=== PATIENT | female | born 1960 | race Caucasian/White ===

== ENCOUNTER 2018-01-08 05:05 | Inpatient (IN) ==
[2018-01-08] MEDS ORDERED: *HR* Dextrose 50 % in Water (Syg) 50 ML SYRINGE IVP PRN (18:05)
[2018-01-08] MEDS ORDERED: Dextrose Gel 15 GM/37.5 ML TUBE PO PRN ×2 (18:05)
[2018-01-08] MEDS ORDERED: D5% in Water 1,000 ML IVC PRN (18:05)
[2018-01-08] MEDS: Lactobacillus 1 EACH CAP.SPRINK PO SCH (20:08)
[2018-01-08] MEDS: Gabapentin 300 MG CAPSULE PO SCH (20:09)
[2018-01-08] MEDS: Furosemide 20 MG TABLET PO SCH (20:09)
[2018-01-08] MEDS: Insulin LISPRO 300 UNITS/3 ML VIAL SQ SCH (20:20)
[2018-01-09] MEDS: *HR* Enoxaparin 40 MG/0.4 ML SYRINGE SQ SCH (05:07)
[2018-01-09] MEDS: Gabapentin 300 MG CAPSULE PO SCH ×2 (07:45→20:07)
[2018-01-09] MEDS: FLUoxetine 20 MG CAPSULE PO SCH (07:45)
[2018-01-09] MEDS: Lisinopril 20 MG TABLET PO SCH (07:45)
[2018-01-09] MEDS: Multivit/Ca/Min/Fe/FA 1 TAB TABLET PO SCH (07:45)
[2018-01-09] MEDS: Aspirin 81 MG TAB.CHEW PO SCH (07:45)
[2018-01-09] MEDS: Lactobacillus 1 EACH CAP.SPRINK PO SCH ×2 (07:45→20:06)
[2018-01-09] MEDS: *HR* Metformin 500 MG TABLET PO SCH ×2 (07:45→16:23)
[2018-01-09] MEDS: Acetaminophen 325 MG TABLET PO PRN (07:48)
[2018-01-09] MEDS: Insulin LISPRO 300 UNITS/3 ML VIAL SQ SCH ×4 (07:48→20:21)
[2018-01-09] MEDS: Insulin DETEMIR 100 UNIT/ML X5UNITS SQ SCH (08:09)
[2018-01-09 10:05] LABS: Basophils # 0.1 K/mcL (0.0-0.2); Basophils % 0.7 %; Eosinophils # 0.2 K/mcL (0.0-0.6); Eosinophils % 2.8 %; Hematocrit 33.7 % (35.3-44.9); Hemoglobin 10.9 g/dL (11.5-15.4); Immature Granulocytes % 0.3 % (0-4); Lymphocytes # 1.3 K/mcL (0.6-4.6); Lymphocytes % 17.8 %; Mean Corpuscular HGB Conc 32.3 g/dL (31.6-35.5); Mean Corpuscular Volume 80.2 fL (83.0-100.0); Mean Platelet Volume 10.8 fL (9.4-12.4); Monocytes # 0.7 K/mcL (0.0-1.3); Monocytes % 9.2 %; Neutrophils # 4.9 K/mcL (1.6-8.9); Platelet Count 164 K/mcL (140-400); Red Cell Distribution Width 15.9 % (11.5-14.5); Segmented Neutrophils % 69.2 %
--- NOTE | 2018-01-09 10:37 | Internal Med History&Physical ---
Date of Encounter: 01/09/18 Time of Encounter: 10:33 Assessment and Plan (1) Generalized weakness Current visit: Yes Status: Chronic it seems that she is quite deconditioned and is unable to move around without any support . PT would help . continue supportive care . She is anemic however her anemia doesn't explain her generalized weakness. nshe has cellulite of the leg which could be the cause of her weakness as her infection improves sowillher weaness (2) Frequent falls Current visit: No Status: Acute same reason as above she also has neuropathy which could ne additional reasons. also se is on january bed which could cause this issue needs further adjustment (3) Cellulitis of left anterior lower leg Current visit: No Status: Acute on oral Clindamycin . continue her medications infection and warmth seems to have improved in her legs (4) Morbid obesity Current visit: No Status: Chronic (5) Diabetes 1.5, managed as type 2 Current visit: No Status: Chronic on multiple meds HBA1c is pending discussed about the need to watch her diet . she understands (6) Anemia Current visit: Yes Status: Chronic Low H/H is most likely chronic in nature workup has been ordered Add iron supplement for now Qualifiers: Anemia type: unspecified type Qualified Code(s): D64.9 - Anemia, unspecified Internal Medicine - H&P: HPI Chief complaint: fall and deconditioning Admitted From: Hospital to Hospital Transfer History of present illness: Ms. Camacho is a 57 year old female who fell down in her tuba nd then couldn't get up . her came back in around in the evening for after 12 hours to helper out. She was admitted at [facility] and later transfer to [place] for deconditioning. At the present time she denies any complains except for her inability ot getup from the bed without assistance. she denies any fever or chills . She complains of neuropathy pain in both her legs No fever or chills no chest pain no nausea vomiting or diarrhea no loss of weight o chest pain cough or symptoms suggesting or urinary tract infect Past Med Surg Social Fam HX - Past Medical History Medical history: COPD, diabetes, hyperlipidemia, hypertension Psychiatric history: no psych history - Past Surgical History Surgical History: cholecystectomy, orthopedic, other - Social History Smoking Status: Current every day smoker Packs per day: 1 Smokeless Tobacco Status: No Alcohol use: none Drug use: none - Family History Mother Age: 56 Family Member Ethnicity: Non- Living Status: Age at : 56 Cause of : diabetic complications Hx Family Cardiac Disorders: Yes (CHF) Hx Family Respiratory Disorders: No Hx Family Cancer: No Hx Family Endocrine Disorder: Yes (DM) Internal Medicine - H&P: Meds Aspirin [Adult Low Dose Aspirin EC] 81 mg PO DAILY 11/27/15 [History] Atorvastatin Calcium [Lipitor] 20 mg PO DAILY 11/27/15 [History] FLUoxetine HCl [Prozac] 20 mg PO DAILY 11/27/15 [History] Insulin ASPART [Novolog] 15 unit SQ TID 11/27/15 [History] Insulin Glargine,Hum.rec.anlog [Lantus Solostar] 36 unit SQ QAM 11/27/15 [ History] Lisinopril [Zestril] 20 mg PO DAILY 11/27/15 [History] Metformin HCl [Glucophage] 1,000 mg PO BID 11/27/15 [History] Oxybutynin Chloride [Ditropan Xl] 20 mg PO HS 11/27/15 [History] Meloxicam 7.5 mg PO DAILY #20 tablet 02/09/17 [Rx] Furosemide [Lasix] 20 mg PO DAILY 01/05/18 [History] Gabapentin [Neurontin] 600 mg PO HS 01/05/18 [History] Iron Ps Cmplx/Vit B12/FA [Poly-Iron 150 Forte Capsule] 1 cap PO DAILY 01/05/18 [ History] Vit/Iron Fumarate/FA [ Tablet] 1 tab PO DAILY 01/05/18 [History ] Acetaminophen [Tylenol] 650 mg PO Q6HR PRN tablet 01/08/18 [Rx] Clindamycin [Cleocin] 450 mg PO Q6HR 7 Days capsule 01/08/18 [Rx] Furosemide [Lasix] 20 mg PO HS #2 tablet 01/08/18 [Rx] Gabapentin [Neurontin] 300 mg PO BID #30 capsule 01/08/18 [Rx] Lactobacillus [Culturelle] 1 each PO BID cap.sprink 01/08/18 [Rx] 3 Allergy/AdvReac Type Severity Reaction Status Date / Time tetanus immune globulin Allergy Hives Verified 01/05/18 19:38 liraglutide [From Victoza] AdvReac Severe Nausea Verified 01/05/18 19:38 All Systems PM: A 10-system review of systems was performed and is negative for pertinent findings except as documented above in the HPI. - Constitutional Constitutional: falls, weakness, no anorexia, no chills, no excessive sweating, no fatigue, no night sweats, no weight gain, no weight loss - EENT Eyes: no blurry vision, no decreased night vision, no discharge, no loss of vision, no photophobia, no seeing flashes Ears: no decreased hearing Nose, mouth and throat: no dysphagia, no facial pain, no mouth pain, no odynophagia, no sinus pain, no sinus pressure, no sore throat - Respiratory Respiratory: no cough, no dyspnea, no hemoptysis, no dyspnea on exertion, no wheezing, no snoring, no pain on inspiration, no chest congestion, no excessive phlegm production, no change in phlegm color, no pain with cough - Gastrointestinal Gastrointestinal: no abdominal pain, no belching, no change in stool character, no constipation, no cramping, no diarrhea, no fecal incontinence, no heartburn, no hematemesis, no hematochezia, no melena, no nausea, no odynophagia - Genitourinary Genitourinary: no difficulty urinating, no hematuria, no pelvic pain, no urinary frequency, no urinary hesitancy, no urinary incontinence - Musculoskeletal Musculoskeletal ROS IM: arthralgias, limited range of motion, numbness, stiffness - Integumentary Integumentary IM: erythema, rash - Psychiatric Psychiatric: no hallucinations, no homicidal ideation, no suicidal ideation - Constitutional Vitals: Temp Pulse Resp BP Pulse Ox 98.1 F 87 17 165/83 99 01/09/18 04:00 01/09/18 04:00 01/09/18 04:00 01/09/18 04:00 01/09/18 04:00 General appearance: Present: A&O X 3, pleasant, no acute distress, obese, answers questions appropriately - Head Head exam: Present: atraumatic - Eye Eye exam: Present: EOMI, PERRL - Neck Neck exam general surgery: Present: full ROM, supple. Absent: tenderness, nuchal rigidity - Respiratory Respiratory exam: Present: CTAB. Absent: accessory muscle use, chest wall tenderness, decreased breath sounds, respiratory distress, rhonchi, stridor, wheezes, tachypnea - Cardiovascular Cardiovascular exam: Present: RRR, +S1, +S2. Absent: clicks, irregular rhythm, JVD - GI/Abdominal GI/Abdominal exam: Present: normal bowel sounds, soft. Absent: distended, guarding, rebound, rigid Additional comments: obese and soft - Extremities Exam Extremities exam: Present: pedal edema, tenderness Additional comments: redness and chronic skin changes noted both legs and shins more swelling on the left leg then right side no discharge tender to touch no local warmth noted - Neurological Exam Neurological exam: Present: alert, CN II-XII intact, oriented X3, reflexes normal, strengths equal and symetr throughout. Absent: facial droop, speech deficit Additional comments: no central weakness noted Internal Med - H&P Results - Labs CBC & Chem 7: 01/09/18 10:00 Labs: Short CBC 01/09/18 Range/Units 10:00 WBC 7.1 (4.3-11.1) K/mcL Hgb 10.9 L (11.5-15.4) g/dL Hct 33.7 L (35.3-44.9) % Plt Count 164 (140-400) K/mcL Neutrophils # 4.9 (1.6-8.9) K/mcL
[2018-01-09] MEDS: Nicotine 21 MG PATCH.TD24 TD SCH (11:37)
[2018-01-09] MEDS: Hydrocortisone 1% OINT 28 GM TUBE TP PRN ×2 (16:23→22:55)
[2018-01-09 18:15] LABS: Estimated Average Glucose 309 mg/dl; Hemoglobin A1C 12.4 %
[2018-01-09] MEDS: Furosemide 20 MG TABLET PO SCH (20:07)
[2018-01-10] MEDS: Acetaminophen 325 MG TABLET PO PRN (00:05)
[2018-01-10] MEDS: *HR* Enoxaparin 40 MG/0.4 ML SYRINGE SQ SCH (05:25)
[2018-01-10 05:28] LABS: Calcium 8.1 mg/dL (8.6-10.3); Potassium 5.1 mEq/L (3.5-5.1)
[2018-01-10] MEDS: Insulin LISPRO 300 UNITS/3 ML VIAL SQ SCH ×4 (08:01→22:55)
[2018-01-10] MEDS: Nicotine 21 MG PATCH.TD24 TD SCH (08:02)
[2018-01-10] MEDS: Lactobacillus 1 EACH CAP.SPRINK PO SCH ×2 (08:02→22:55)
[2018-01-10] MEDS: Multivit/Ca/Min/Fe/FA 1 TAB TABLET PO SCH (08:02)
[2018-01-10] MEDS: Aspirin 81 MG TAB.CHEW PO SCH (08:02)
[2018-01-10] MEDS: Lisinopril 20 MG TABLET PO SCH (08:02)
[2018-01-10] MEDS: Gabapentin 300 MG CAPSULE PO SCH ×2 (08:02→22:56)
[2018-01-10] MEDS: *HR* Metformin 500 MG TABLET PO SCH ×2 (08:02→17:25)
[2018-01-10] MEDS: FLUoxetine 20 MG CAPSULE PO SCH (08:02)
[2018-01-10] MEDS: Insulin DETEMIR 100 UNIT/ML X5UNITS SQ SCH (08:16)
--- NOTE | 2018-01-10 10:37 | Internal Med Progress Note ---
Date of Encounter: 01/10/18 Time of Encounter: 10:35 - Assessment and plan (1) Generalized weakness Current Visit: Yes Status: Chronic Assessment and plan: Patient states that she continues to have generalized weakness and poor endurance. Physical therapy is evaluating with pending recommendations. Patient states that she has fallen 3-4 times in the last week. We will continue to use assistive devices when ambulating. (2) Cellulitis of left anterior lower leg Current Visit: No Status: Acute Assessment and plan: Left leg appears reddened and swollen. Patient had a CAT scan of left leg for evaluation after admission from [facility] and a fall at home. CT scan shows the patient has a soft tissue hematoma to the left leg. Patient denies any tenderness, except during range of motion. Left leg is larger than right. We will obtain venous Doppler of left leg. Patient to continue on Lovenox (3) COPD (chronic obstructive pulmonary disease) Current Visit: No Status: Chronic Assessment and plan: No acute issues. Patient noted to have fine rales to posterior basilar mcclure. History of her appears relaxed oral rest. We will obtain chest x-ray in the morning. Qualifiers: COPD type: emphysema Emphysema type: unspecified Qualified Code(s): J43.9 - Emphysema, unspecified (4) HTN (hypertension) Current Visit: No Status: Chronic Assessment and plan: Vital signs are stable. We will continue his current medications. Qualifiers: Hypertension type: essential hypertension Qualified Code(s): I10 - Essential (primary) hypertension (5) Diabetes 1.5, managed as type 2 Current Visit: No Status: Chronic Assessment and plan: Glucose has been monitoring with fingersticks and coverage with sliding scale. We will continue with current coverage and monitor for any needs of change. - Time Spent With Patient less than 15 minutes - Subjective Interval history: Patient appears lites and currently denies any discomforts or shortness of breath. Patient noted to have her left lower leg somewhat. Left leg shows moderate amount of erythema with previous medical records showing patient having met CT of that leg and the diagnosis of a hematoma present. Patient denies any discomforts - Constitutional Vitals: Temp Pulse Resp BP Pulse Ox 98.5 F 80 18 152/69 95 01/10/18 07:00 01/10/18 07:00 01/10/18 07:00 01/10/18 07:00 01/10/18 07:00 General appearance: Present: A&O X 3, pleasant, no acute distress, obese, answers questions appropriately - Head Head exam: Present: atraumatic, normocephalic - Eye Eye exam: Present: PERRL, conjuntiva pink, sclera anicteric Pupils: Present: PERRL - Neck Neck exam general surgery: Present: supple, trachea midline. Absent: lymphadenopathy - Respiratory Respiratory exam: Present: CTAB, rales. Absent: accessory muscle use, rhonchi, wheezes Additional comments: Patient noted to have fine rales posteriorly to the lower basilar mcclure - Cardiovascular Cardiovascular exam: Present: RRR, +S1, +S2. Absent: diastolic murmur, gallop, rubs, systolic murmur - GI/Abdominal GI/Abdominal exam: Present: normal bowel sounds, soft, no peritoneal signs. Absent: distended, tenderness - Extremities Exam Extremities exam: Present: warm, radial pulses palpable and symmetrical. Absent : calf tenderness, cyanotic, pedal edema Additional comments: Bilateral lower legs have nonpitting edema with left greater than right. Left leg is erythematous to the left lower leg. No tenderness. - Neurological Exam Neurological exam: Present: CN II-XII intact, oriented X3, no focal deficits. Absent: pronater drift, facial droop, speech deficit - Skin Skin exam: Present: dry, intact Internal Medicine: Result - Labs CBC & Chem 7: 01/09/18 10:00 01/10/18 05:05 Labs: BMP 01/10/18 05:05 Sodium 133 L Potassium 5.1 Chloride 104 Carbon Dioxide 25 BUN 18 Creatinine 1.29 H Glucose 85 Calcium 8.1 L Consult Discharge Plan - Plan Referrals: Carl Kevin MD [Primary Care Provider] -
--- NOTE | 2018-01-10 16:51 | Physcial Medicine-Consult Note ---
Date of Encounter: 01/10/18 Time of Encounter: 16:48 Physical Medicine - AP (1) Diabetic neuropathy Status: Acute Assessment and plan: Gen weakness and sensory loss. Code(s): E11.40 - Type 2 diabetes mellitus with diabetic neuropathy, unspecified SNOMED Code(s): 193711887 (2) Generalized weakness Status: Chronic Assessment and plan: Seems strong. will disuss with therapy. Code(s): R53.1 - Weakness SNOMED Code(s): 54800125 Physical Medicine - HPI - Data of Consult Requesting Physician: Addy Whitfield MD Primary Care Provider: Carl Kevin MD - Consult Narrative History of present illness: Ms. Camacho is a 57 year old right handed female admitted with generalized weakness and bilateral LE cellulitis, L>R. Currently she complains of constipation with no BM in 4 days. Normal habit is every other day. She also notes longstanding numbness in feet. She has beeen diabetic for 20 years. CC: Addy Whitfield MD Past Med Surg Social Fam HX - Past Medical History Attestation: Yes The following information was validated with the patient. Medical history: COPD, diabetes, hyperlipidemia, hypertension Psychiatric history: no psych history - Past Surgical History Surgical History: cholecystectomy, orthopedic, other - Social History Smoking Status: Current every day smoker Packs per day: 1 Smokeless Tobacco Status: No Alcohol use: none Drug use: none - Family History Mother Age: 56 Family Member Ethnicity: Non- Living Status: Age at : 56 Cause of : diabetic complications Hx Family Cardiac Disorders: Yes (CHF) Hx Family Respiratory Disorders: No Hx Family Cancer: No Hx Family Endocrine Disorder: Yes (DM) Medications and Allergies Aspirin [Adult Low Dose Aspirin EC] 81 mg PO DAILY 11/27/15 [History] Atorvastatin Calcium [Lipitor] 20 mg PO DAILY 11/27/15 [History] FLUoxetine HCl [Prozac] 20 mg PO DAILY 11/27/15 [History] Insulin ASPART [Novolog] 15 unit SQ TID 11/27/15 [History] Insulin Glargine,Hum.rec.anlog [Lantus Solostar] 36 unit SQ QAM 11/27/15 [ History] Lisinopril [Zestril] 20 mg PO DAILY 11/27/15 [History] Metformin HCl [Glucophage] 1,000 mg PO BID 11/27/15 [History] Oxybutynin Chloride [Ditropan Xl] 20 mg PO HS 11/27/15 [History] Meloxicam 7.5 mg PO DAILY #20 tablet 02/09/17 [Rx] Furosemide [Lasix] 20 mg PO DAILY 01/05/18 [History] Gabapentin [Neurontin] 600 mg PO HS 01/05/18 [History] Iron Ps Cmplx/Vit B12/FA [Poly-Iron 150 Forte Capsule] 1 cap PO DAILY 01/05/18 [ History] Vit/Iron Fumarate/FA [ Tablet] 1 tab PO DAILY 01/05/18 [History ] Acetaminophen [Tylenol] 650 mg PO Q6HR PRN tablet 01/08/18 [Rx] Clindamycin [Cleocin] 450 mg PO Q6HR 7 Days capsule 01/08/18 [Rx] Furosemide [Lasix] 20 mg PO HS #2 tablet 01/08/18 [Rx] Gabapentin [Neurontin] 300 mg PO BID #30 capsule 01/08/18 [Rx] Lactobacillus [Culturelle] 1 each PO BID cap.sprink 01/08/18 [Rx] 3 Allergy/AdvReac Type Severity Reaction Status Date / Time tetanus immune globulin Allergy Hives Verified 01/05/18 19:38 liraglutide [From Victoza] AdvReac Severe Nausea Verified 01/05/18 19:38 All systems: reviewed and no additional remarkable complaints except as stated Physical Medicine - Exam - Constitutional Vitals: Temp Pulse Resp BP Pulse Ox 98.5 F 80 18 152/69 95 01/10/18 07:00 01/10/18 07:00 01/10/18 07:00 01/10/18 07:00 01/10/18 07:00 General appearance: cooperative, no acute distress, obese - Head Head exam: Present: atraumatic, normocephalic - Eye Eye exam: Present: EOMI - ENT ENT exam: Present: mucous membranes moist - Neck Neck exam: Present: full ROM - Respiratory Respiratory exam: Present: CTAB - Cardiovascular Cardiovascular exam: Present: RRR - GI/Abdominal GI/Abdominal exam: Present: normal bowel sounds, soft - Extremities Exam Extremities exam: Present: tenderness Additional comments: LLE erythema . BLE 2+ edema. Good strength 4+/5. - Neurological Exam Neurological exam: Present: alert, oriented X3, no focal deficits Additional comments: Diminished sensation in feet Physical Medicine - Results - Labs CBC & Chem 7: 01/09/18 10:00 01/10/18 05:05 Labs: BMP 01/10/18 05:05 Sodium 133 L Potassium 5.1 Chloride 104 Carbon Dioxide 25 BUN 18 Creatinine 1.29 H Glucose 85 Calcium 8.1 L Consult Discharge Plan - Plan Referrals: Carl Kevin MD [Primary Care Provider] -
[2018-01-10] MEDS: Hydrocortisone 1% OINT 28 GM TUBE TP PRN (17:26)
[2018-01-10] MEDS: Furosemide 20 MG TABLET PO SCH ×2 (22:55)
[2018-01-10] MEDS: Sennosides/Docusate Sodium TABLET PO SCH (22:56)
[2018-01-11] MEDS: *HR* Enoxaparin 40 MG/0.4 ML SYRINGE SQ SCH (05:54)
[2018-01-11] MEDS: Furosemide 20 MG TABLET PO SCH (08:47)
[2018-01-11] MEDS: Gabapentin 300 MG CAPSULE PO SCH ×2 (08:47→21:24)
[2018-01-11] MEDS: Lactobacillus 1 EACH CAP.SPRINK PO SCH ×2 (08:47→21:24)
[2018-01-11] MEDS: Aspirin 81 MG TAB.CHEW PO SCH (08:47)
[2018-01-11] MEDS: Sennosides/Docusate Sodium TABLET PO SCH ×2 (08:47→21:24)
[2018-01-11] MEDS: *HR* Metformin 500 MG TABLET PO SCH ×2 (08:47→17:02)
[2018-01-11] MEDS: FLUoxetine 20 MG CAPSULE PO SCH (08:47)
[2018-01-11] MEDS: Insulin LISPRO 300 UNITS/3 ML VIAL SQ SCH ×4 (08:48→21:28)
[2018-01-11] MEDS: Multivit/Ca/Min/Fe/FA 1 TAB TABLET PO SCH (08:48)
[2018-01-11] MEDS: Lisinopril 20 MG TABLET PO SCH (08:48)
[2018-01-11] MEDS: Insulin DETEMIR 100 UNIT/ML X5UNITS SQ SCH (08:49)
[2018-01-11] MEDS: Nicotine 21 MG PATCH.TD24 TD SCH (08:57)
--- NOTE | 2018-01-11 10:24 | Internal Med Progress Note ---
Date of Encounter: 01/11/18 Time of Encounter: 10:21 - Assessment and plan (1) Generalized weakness Current Visit: Yes Status: Chronic Assessment and plan: Patient states that she continues to have generalized weakness and poor endurance. Patient to continue with physical therapy. We will continue to use assistive devices when ambulating. (2) Cellulitis of left anterior lower leg Current Visit: No Status: Acute Assessment and plan: Left leg appears reddened and swollen. Patient had a CAT scan of left leg for evaluation after admission from [facility] and a fall at home. CT scan shows the patient has a soft tissue hematoma to the left leg. Patient denies any tenderness, except during range of motion. Left leg is larger than right. Patient to continue on Lovenox. Patient currently has rash to her lower back and legs. We will discontinue Cleocin and started on doxycycline (3) COPD (chronic obstructive pulmonary disease) Current Visit: No Status: Chronic Assessment and plan: No acute issues. Patient noted to have fine rales to posterior basilar mcclure. History of her appears relaxed oral rest. Qualifiers: COPD type: emphysema Emphysema type: unspecified Qualified Code(s): J43.9 - Emphysema, unspecified (4) HTN (hypertension) Current Visit: No Status: Chronic Assessment and plan: Vital signs are stable. We will continue his current medications. Qualifiers: Hypertension type: essential hypertension Qualified Code(s): I10 - Essential (primary) hypertension (5) Diabetes 1.5, managed as type 2 Current Visit: No Status: Chronic Assessment and plan: Glucose has been monitoring with fingersticks and coverage with sliding scale. Glucose has been well controlled. We will continue with current coverage and monitor for any needs of change. - Time Spent With Patient less than 15 minutes - Subjective Interval history: Patient appears lites and currently denies any discomforts or shortness of breath. Patient does complain of itching and a rash which is located on her back and on her legs. Patient states that she noticed the beginnings of the rash approximately 2 days prior. Patient also complains of pain she gets during swallowing, in which she believes that her food sometimes gets stuck in her lower esophagus. Patient denies any vomiting or nausea. Patient states that she has noticed this over the last 2 days also. Denies any reflux or change in bowel habits. - Constitutional Vitals: Temp Pulse Resp BP Pulse Ox 98.1 F 78 16 147/83 98 01/11/18 07:46 01/11/18 07:46 01/11/18 07:46 01/11/18 07:46 01/11/18 07:46 General appearance: Present: A&O X 3, pleasant, no acute distress, obese, answers questions appropriately - Head Head exam: Present: atraumatic, normocephalic - Eye Eye exam: Present: PERRL, conjuntiva pink, sclera anicteric Pupils: Present: PERRL - Neck Neck exam general surgery: Present: supple, trachea midline. Absent: lymphadenopathy - Respiratory Respiratory exam: Present: CTAB. Absent: accessory muscle use, rales, rhonchi, wheezes Additional comments: Lungs are diminished to lower mcclure, but otherwise - Cardiovascular Cardiovascular exam: Present: RRR, +S1, +S2. Absent: diastolic murmur, gallop, rubs, systolic murmur - GI/Abdominal GI/Abdominal exam: Present: normal bowel sounds, soft, no peritoneal signs. Absent: distended, tenderness - Extremities Exam Extremities exam: Present: warm, radial pulses palpable and symmetrical. Absent : calf tenderness, cyanotic, pedal edema - Neurological Exam Neurological exam: Present: CN II-XII intact, oriented X3, no focal deficits. Absent: pronater drift, facial droop, speech deficit - Skin Skin exam: Present: dry, intact Additional comments: Patient with a petechiae-type rash to her lower back and legs, which she states itches. No open wounds. Bilateral legs are swollen with left greater than right. Left leg appears very erythemic Internal Medicine: Result - Labs CBC & Chem 7: 01/09/18 10:00 01/10/18 05:05 Consult Discharge Plan - Plan Referrals: Carl Kevin MD [Primary Care Provider] -
[2018-01-11] MEDS: Doxycycline 100 MG CAPSULE PO SCH (21:23)
[2018-01-11] MEDS: Acetaminophen 325 MG TABLET PO PRN (21:23)
[2018-01-11] MEDS: Hydrocortisone 1% OINT 28 GM TUBE TP PRN (23:10)
[2018-01-12] MEDS: *HR* Enoxaparin 40 MG/0.4 ML SYRINGE SQ SCH (06:02)
[2018-01-12] MEDS: Acetaminophen 325 MG TABLET PO PRN (06:02)
[2018-01-12] MEDS: Insulin LISPRO 300 UNITS/3 ML VIAL SQ SCH ×4 (07:36→22:17)
[2018-01-12] MEDS: Sennosides/Docusate Sodium TABLET PO SCH ×2 (07:37→22:16)
[2018-01-12] MEDS: Lactobacillus 1 EACH CAP.SPRINK PO SCH ×2 (07:38→22:15)
[2018-01-12] MEDS: FLUoxetine 20 MG CAPSULE PO SCH (07:38)
[2018-01-12] MEDS: Furosemide 20 MG TABLET PO SCH (07:38)
[2018-01-12] MEDS: Doxycycline 100 MG CAPSULE PO SCH ×2 (07:38→22:15)
[2018-01-12] MEDS: Gabapentin 300 MG CAPSULE PO SCH ×2 (07:38→22:16)
[2018-01-12] MEDS: *HR* Metformin 500 MG TABLET PO SCH ×2 (07:38→16:52)
[2018-01-12] MEDS: Insulin DETEMIR 100 UNIT/ML X5UNITS SQ SCH (07:38)
[2018-01-12] MEDS: Multivit/Ca/Min/Fe/FA 1 TAB TABLET PO SCH (07:38)
[2018-01-12] MEDS: Nicotine 21 MG PATCH.TD24 TD SCH (07:38)
[2018-01-12] MEDS: Lisinopril 20 MG TABLET PO SCH (07:38)
[2018-01-12] MEDS: Aspirin 81 MG TAB.CHEW PO SCH (07:38)
--- NOTE | 2018-01-12 10:31 | Internal Med Progress Note ---
Date of Encounter: 01/12/18 Time of Encounter: 10:29 - Assessment and plan (1) Generalized weakness Current Visit: Yes Status: Chronic Assessment and plan: Patient states that she continues to have generalized weakness and poor endurance. Patient to continue with physical therapy. We will continue to use assistive devices when ambulating. (2) Cellulitis of left anterior lower leg Current Visit: No Status: Acute Assessment and plan: Left leg appears reddened and swollen. Patient had a CAT scan of left leg, which shows the patient has a soft tissue hematoma to the left leg. Patient denies any tenderness, except during range of motion. Left leg is larger than right. Patient to continue on Lovenox. Patient currently has rash to her lower back and legs. We will continue on doxycycline (3) COPD (chronic obstructive pulmonary disease) Current Visit: No Status: Chronic Assessment and plan: No acute issues. Patient noted to have fine rales to posterior basilar mcclure. History of her appears relaxed oral rest. Qualifiers: COPD type: emphysema Emphysema type: unspecified Qualified Code(s): J43.9 - Emphysema, unspecified (4) HTN (hypertension) Current Visit: No Status: Chronic Assessment and plan: Vital signs are stable. We will continue his current medications. Qualifiers: Hypertension type: essential hypertension Qualified Code(s): I10 - Essential (primary) hypertension (5) Diabetes 1.5, managed as type 2 Current Visit: No Status: Chronic Assessment and plan: Glucose has been monitoring with fingersticks and coverage with sliding scale. Glucose has been well controlled. We will continue with current coverage and monitor for any needs of change. (6) Rash Current Visit: Yes Status: Acute Assessment and plan: Patient has had a rash for approximately 3-4 days with itching. Patient states that itching has resolved somewhat after starting on hydrocortisone cream and oral Benadryl. Patient's antibiotic was changed from Cleocin to doxycycline. - Time Spent With Patient less than 15 minutes - Subjective Interval history: Patient appears lites and currently denies any discomforts or shortness of breath. Patient does complain of itching and a rash which is located on her back and on her legs. Patient states that she noticed the beginnings of the rash approximately 3 days prior. States that her itching has diminished since starting on Benadryl and applying hydrocortisone cream to rash. Pt's ATB has been changed. Patient also complains of pain she gets during swallowing, in which she believes that her food sometimes gets stuck in her lower esophagus. Patient denies any vomiting or nausea. Patient states that she has noticed this over the last 3 days also. Denies any reflux or change in bowel habits. - Constitutional Vitals: Temp Pulse Resp BP Pulse Ox 97.4 F L 72 14 136/78 97 01/12/18 07:00 01/12/18 07:00 01/12/18 07:00 01/12/18 07:00 01/12/18 07:00 General appearance: Present: A&O X 3, pleasant, no acute distress, obese, answers questions appropriately - Head Head exam: Present: atraumatic, normocephalic - Eye Eye exam: Present: PERRL, conjuntiva pink, sclera anicteric Pupils: Present: PERRL - Neck Neck exam general surgery: Present: supple, trachea midline. Absent: lymphadenopathy - Respiratory Respiratory exam: Present: CTAB. Absent: accessory muscle use, rales, rhonchi, wheezes Additional comments: diminished breath sounds to bases. Resp effort is relaxed. - Cardiovascular Cardiovascular exam: Present: RRR, +S1, +S2. Absent: diastolic murmur, gallop, rubs, systolic murmur - GI/Abdominal GI/Abdominal exam: Present: normal bowel sounds, soft, no peritoneal signs. Absent: distended, tenderness - Extremities Exam Extremities exam: Present: warm, radial pulses palpable and symmetrical. Absent : calf tenderness, cyanotic, pedal edema - Neurological Exam Neurological exam: Present: CN II-XII intact, oriented X3, no focal deficits. Absent: pronater drift, facial droop, speech deficit - Skin Skin exam: Present: dry, intact Internal Medicine: Result - Labs CBC & Chem 7: 01/09/18 10:00 01/10/18 05:05 Consult Discharge Plan - Plan Referrals: Carl Kevin MD [Primary Care Provider] -
--- NOTE | 2018-01-12 16:17 | Physical Med Progress Note ---
Date of Encounter: 01/12/18 Time of Encounter: 16:11 Assessment and Plan (1) Diabetic neuropathy Current Visit: Yes Status: Acute Assessment and plan: Cellulitis improved. Still has edema. Will start compression hose. Ambulating 75 ' with quad cane standby assist. No loss of balance. Will make independent in room tomorrow. Discharge planning [facility] 01-14-2018 Qualifiers: Diabetes mellitus complication detail: diabetic polyneuropathy Qualified Code(s): E11.42 - Type 2 diabetes mellitus with diabetic polyneuropathy (2) Generalized weakness Current Visit: Yes Status: Chronic Assessment and plan: Slowly improving strength. Continue Rehab. Physical Medicine-PN: Subj Interval history: No c/o. BM+ X2. - Constitutional Vitals: Vital Signs Temp Pulse Resp BP Pulse Ox 01/12/18 07:00 97.4 F L 72 14 136/78 97 01/11/18 19:00 97.8 F 84 16 137/61 97 Intake and Output 01/12/18 01/12/18 01/12/18 07:59 15:59 23:59 Intake Total 300 / 300 120 / 120 Balance 300 / 300 120 / 120 Intake: Oral 300 / 300 120 / 120 Other: Meal Breakfast Percent of Meal Consumed 80% Stool Size Moderate Stool Consistency soft # Voids 1 Blood Glucose* 80 64 General appearance: cooperative, morbidly obese, no acute distress - Extremities Exam Extremities exam: Present: pedal edema, tenderness Additional comments: Erythema improved. 2+ edema Strength good. Physical Medicine-PN: Obj Data - Labs CBC & Chem 7: 01/09/18 10:00 01/10/18 05:05 Labs: Laboratory Results - last 24 hr 01/11/18 01/11/18 01/11/18 06:35 11:26 16:32 POC Glucose 79 169 H 87 01/11/18 21:24 POC Glucose 128 H Consult Discharge Plan - Plan Referrals: Carl Kevin MD [Primary Care Provider] -
[2018-01-13] MEDS: *HR* Enoxaparin 40 MG/0.4 ML SYRINGE SQ SCH (05:25)
[2018-01-13] MEDS: Doxycycline 100 MG CAPSULE PO SCH ×2 (08:16→20:33)
[2018-01-13] MEDS: Multivit/Ca/Min/Fe/FA 1 TAB TABLET PO SCH (08:16)
[2018-01-13] MEDS: FLUoxetine 20 MG CAPSULE PO SCH (08:16)
[2018-01-13] MEDS: Lactobacillus 1 EACH CAP.SPRINK PO SCH ×2 (08:16→20:32)
[2018-01-13] MEDS: Gabapentin 300 MG CAPSULE PO SCH ×2 (08:16→20:34)
[2018-01-13] MEDS: *HR* Metformin 500 MG TABLET PO SCH ×2 (08:16→16:03)
[2018-01-13] MEDS: Aspirin 81 MG TAB.CHEW PO SCH (08:16)
[2018-01-13] MEDS: Nicotine 21 MG PATCH.TD24 TD SCH (08:17)
[2018-01-13] MEDS: Lisinopril 20 MG TABLET PO SCH (08:17)
[2018-01-13] MEDS: Insulin LISPRO 300 UNITS/3 ML VIAL SQ SCH ×4 (08:17→23:56)
[2018-01-13] MEDS: Furosemide 20 MG TABLET PO SCH (08:17)
[2018-01-13] MEDS: Sennosides/Docusate Sodium TABLET PO SCH ×2 (08:17→20:34)
[2018-01-13] MEDS: Insulin DETEMIR 100 UNIT/ML X5UNITS SQ SCH ×2 (08:43→13:29)
--- NOTE | 2018-01-13 12:24 | Internal Med Progress Note ---
Date of Encounter: 01/13/18 Time of Encounter: 12:21 - Assessment and plan (1) Generalized weakness Current Visit: Yes Status: Chronic Assessment and plan: Patient states that she continues to have generalized weakness and poor endurance. Patient to continue with physical therapy. We will continue to use assistive devices when ambulating. Patient being prepared for discharge to home. (2) Cellulitis of left anterior lower leg Current Visit: No Status: Acute Assessment and plan: Left leg remains reddened and swollen. Patient had a CAT scan of left leg, which shows the patient has a soft tissue hematoma to the left leg. Doppler was obtained on leg which showed negative for DVT. Left leg is larger than right. Patient to continue on Lovenox. We will continue on doxycycline (3) COPD (chronic obstructive pulmonary disease) Current Visit: No Status: Chronic Assessment and plan: No acute issues. Patient noted to have fine rales to posterior basilar mcclure. History of her appears relaxed oral rest. Qualifiers: COPD type: emphysema Emphysema type: unspecified Qualified Code(s): J43.9 - Emphysema, unspecified (4) HTN (hypertension) Current Visit: No Status: Chronic Assessment and plan: Vital signs are stable. We will continue his current medications. Qualifiers: Hypertension type: essential hypertension Qualified Code(s): I10 - Essential (primary) hypertension (5) Diabetes 1.5, managed as type 2 Current Visit: No Status: Chronic Assessment and plan: Glucose has been monitoring with fingersticks and coverage with sliding scale. Glucose has been well controlled. We will continue with current coverage and monitor for any needs of change. (6) Rash Current Visit: Yes Status: Acute Assessment and plan: Resolved. - Time Spent With Patient less than 15 minutes - Subjective Interval history: Patient appears lites and currently denies any discomforts or shortness of breath. Patient states that her rash appears to be resolving and denies any further itching. Patient also states that the pain that she was having after meals has resolved. Patient being prepared for possible discharge tomorrow and states that she feels she is ready to go home. - Constitutional Vitals: Temp Pulse Resp BP Pulse Ox 97.6 F 77 16 136/70 100 01/13/18 08:46 01/13/18 08:46 01/13/18 08:46 01/13/18 08:46 01/13/18 08:46 General appearance: Present: A&O X 3, pleasant, no acute distress, obese, answers questions appropriately - Head Head exam: Present: atraumatic, normocephalic - Eye Eye exam: Present: PERRL, conjuntiva pink, sclera anicteric Pupils: Present: PERRL - Neck Neck exam general surgery: Present: supple, trachea midline. Absent: lymphadenopathy - Respiratory Respiratory exam: Present: CTAB. Absent: accessory muscle use, rales, rhonchi, wheezes Additional comments: Lungs are diminished to lower mcclure. Respiratory effort appears relaxed - Cardiovascular Cardiovascular exam: Present: RRR, +S1, +S2. Absent: diastolic murmur, gallop, rubs, systolic murmur - GI/Abdominal GI/Abdominal exam: Present: normal bowel sounds, soft, no peritoneal signs. Absent: distended, tenderness - Extremities Exam Extremities exam: Present: warm, radial pulses palpable and symmetrical. Absent : calf tenderness, cyanotic, pedal edema - Neurological Exam Neurological exam: Present: CN II-XII intact, oriented X3, no focal deficits. Absent: pronater drift, facial droop, speech deficit - Skin Skin exam: Present: dry, intact Internal Medicine: Result - Labs CBC & Chem 7: 01/09/18 10:00 01/10/18 05:05 Consult Discharge Plan - Plan Referrals: Carl Kevin MD [Primary Care Provider] - 01/19/18 2:30 pm
[2018-01-14] MEDS: *HR* Enoxaparin 40 MG/0.4 ML SYRINGE SQ SCH (04:43)
[2018-01-14] MEDS: Insulin LISPRO 300 UNITS/3 ML VIAL SQ SCH ×2 (07:52→12:11)
[2018-01-14] MEDS: FLUoxetine 20 MG CAPSULE PO SCH (08:19)
[2018-01-14] MEDS: Gabapentin 300 MG CAPSULE PO SCH (08:19)
[2018-01-14] MEDS: *HR* Metformin 500 MG TABLET PO SCH (08:19)
[2018-01-14] MEDS: Aspirin 81 MG TAB.CHEW PO SCH (08:19)
[2018-01-14] MEDS: Doxycycline 100 MG CAPSULE PO SCH (08:19)
[2018-01-14] MEDS: Sennosides/Docusate Sodium TABLET PO SCH (08:19)
[2018-01-14] MEDS: Furosemide 20 MG TABLET PO SCH (08:19)
[2018-01-14] MEDS: Multivit/Ca/Min/Fe/FA 1 TAB TABLET PO SCH (08:19)
[2018-01-14] MEDS: Lisinopril 20 MG TABLET PO SCH (08:19)
[2018-01-14] MEDS: Lactobacillus 1 EACH CAP.SPRINK PO SCH (08:20)
[2018-01-14] MEDS: Nicotine 21 MG PATCH.TD24 TD SCH (08:20)
[2018-01-14] MEDS: Insulin DETEMIR 100 UNIT/ML X5UNITS SQ SCH (08:24)
[2018-01-14 08:59] VITALS: BP 135/68
--- NOTE | 2018-01-14 09:40 | Discharge Summary ---
Date of Encounter: 01/14/18 Time of Encounter: 09:38 - Discharge Diagnosis (1) Generalized weakness Priority: Primary Status: Chronic Comments: ( patient continued to progress ell with physical therapy. patient to continue with PT OT after arge through home heah. (2) Cellulitis of left anterior lower leg Priority: Secondary Status: Acute Comments: continues withhcellulitis t left leg with no oounds. patient to continue with atibiotics. CAT scan of the left shows hematoma , likely secondary to fall. Doppler showed no DVT (3) COPD (chronic obstructive pulmonary disease) Priority: Secondary Status: Chronic Comments: acute issues during stay. patientto continue home medications Qualifiers: COPD type: emphysema Emphysema type: unspecified Qualified Code(s): J43.9 - Emphysema, unspecified (4) HTN (hypertension) Priority: Secondary Status: Chronic Comments: vital signs stable. patient to continue with ho medications Qualifiers: Hypertension type: essential hypertension Qualified Code(s): I10 - Essential (primary) hypertension (5) Diabetes 1.5, managed as type 2 Priority: Secondary Status: Chronic Comments: no acute issues. Patient continue with home medications (6) Rash Priority: Secondary Status: Acute Comments: Resolved Hospital course: Ms. Camacho is a 57 year old female experienced a fall at home and was admitted an area hospital for evaluation. Patient injured her left leg, which appears swollen and reddened. CAT scan performed at [facility] showed a hematoma in the soft tissue of the left lower leg. Doppler obtained was negative for DVT. Patient was placed on antibiotics for cellulitis which she has finished. Patient progressed well with physical therapy. Patient is to continue with physical therapy at home. Patient continues home medications. Discharge discussed with: patient Time spent discussing smoking cessation with patient: 3 to 10 minutes - Time Spent with Patient Total time spent providing and/or coordinating discharge services: Less than 30 minutes - Discharge Medications Home Medications: Aspirin [Adult Low Dose Aspirin EC] 81 mg PO DAILY 11/27/15 [History] Atorvastatin Calcium [Lipitor] 20 mg PO DAILY 11/27/15 [History] FLUoxetine HCl [Prozac] 20 mg PO DAILY 11/27/15 [History] Insulin ASPART [Novolog] 15 unit SQ TID 11/27/15 [History] Insulin Glargine,Hum.rec.anlog [Lantus Solostar] 36 unit SQ QAM 11/27/15 [ History] Lisinopril [Zestril] 20 mg PO DAILY 11/27/15 [History] Metformin HCl [Glucophage] 1,000 mg PO BID 11/27/15 [History] Oxybutynin Chloride [Ditropan Xl] 20 mg PO HS 11/27/15 [History] Meloxicam 7.5 mg PO DAILY #20 tablet 02/09/17 [Rx] Furosemide [Lasix] 20 mg PO DAILY 01/05/18 [History] Gabapentin [Neurontin] 600 mg PO HS 01/05/18 [History] Iron Ps Cmplx/Vit B12/FA [Poly-Iron 150 Forte Capsule] 1 cap PO DAILY 01/05/18 [ History] Vit/Iron Fumarate/FA [ Tablet] 1 tab PO DAILY 01/05/18 [History ] Acetaminophen [Tylenol] 650 mg PO Q6HR PRN tablet 01/08/18 [Rx] Clindamycin [Cleocin] 450 mg PO Q6HR 7 Days capsule 01/08/18 [Rx] Furosemide [Lasix] 20 mg PO HS #2 tablet 01/08/18 [Rx] Gabapentin [Neurontin] 300 mg PO BID #30 capsule 01/08/18 [Rx] Lactobacillus [Culturelle] 1 each PO BID cap.sprink 01/08/18 [Rx] Allergies/Adverse Reactions: 3 Allergy/AdvReac Type Severity Reaction Status Date / Time tetanus immune globulin Allergy Hives Verified 01/05/18 19:38 liraglutide [From Victoza] AdvReac Severe Nausea Verified 01/05/18 19:38 Date of admission: 01/08/18 05:05 Primary care physician: Carl Kevin MD Consults: 01/08/18 17:31 Consult to Band Attacher [CONS] Routine Reason for SW Consult: Additional information wanted regarding advanced directives 01/08/18 17:56 Consult to Occupational Therapy [CONS] Routine Comment: Evaluate, develop and implement POC Reason for Consult: Deconditioning s/p LLE cellulitis Does patient have active BEDREST order?: No Is patient medically & hemodynamically stable?: Yes Patient assessed for mobility or mobilized this visit?: Yes Consult to Physical Therapy [CONS] Routine Comment: Evaluate, develop and implement POC Reason for Consult: Deconditioning s/p cellulitis Does patient have active BEDREST order?: No Is patient medically & hemodynamically stable?: Yes Patient assessed for mobility or mobilized this visit?: Yes Consult to Recreational Therapy [CONS] Routine Comment: Evaluate, develop and implement POC Consult to Band Attacher [CONS] Routine Reason for SW Consult: Rehab 01/10/18 13:48 Consult to Physical Medicine/Rehab [CONS] Routine Reason for Consult: physicial med Time Notified: 14:00 Call Completed: Yes 01/12/18 10:28 Consult to Speech Therapy [CONS] Routine Comment: Evaluate, develop and implement POC Reason for Consult: Pt with c/o difficulties with swallow and pain after meals Time Notified: 10:29 Call Completed: No Discharging clinician: Reddy Gauthier Anticipated date of discharge: 01/14/18 - Constitutional Vitals: Temp Pulse Resp BP Pulse Ox 97.6 F 89 18 135/68 97 01/14/18 08:00 01/14/18 08:00 01/14/18 08:00 01/14/18 08:00 01/14/18 08:00 General appearance: Present: A&O X 3, pleasant, no acute distress, obese, answers questions appropriately - Head Head exam: Present: atraumatic, normocephalic - Eye Eye exam: Present: PERRL, conjuntiva pink, sclera anicteric Pupils: Present: PERRL - Neck Neck exam general surgery: Present: supple, trachea midline. Absent: lymphadenopathy - Respiratory Respiratory exam: Present: CTAB. Absent: accessory muscle use, rales, rhonchi, wheezes - Cardiovascular Cardiovascular exam: Present: RRR, +S1, +S2. Absent: diastolic murmur, gallop, rubs, systolic murmur - GI/Abdominal GI/Abdominal exam: Present: normal bowel sounds, soft, no peritoneal signs. Absent: distended, tenderness - Extremities Exam Extremities exam: Present: warm, radial pulses palpable and symmetrical. Absent : calf tenderness, cyanotic, pedal edema Additional comments: Bilateral lower leg +1 edema with left greater than right. Left leg appears very erythemic. No open wounds or tenderness on palpation. - Neurological Exam Neurological exam: Present: CN II-XII intact, oriented X3, no focal deficits. Absent: pronater drift, facial droop, speech deficit - Skin Skin exam: Present: dry, intact - Patient Status Disposition: Home, Self-Care Condition: Good Functional capacity at discharge: uses cane/walker Overall status at discharge: patient is progressing back to baseline - Discharge Instructions Follow Up With: Carl Kevin MD [Primary Care Provider] - 01/19/18 2:30 pm - Diet and Activity Activity: ambulate only with your walker, as per physical therapy, increase activity as tolerated, resume usual activities as tolerated Diet: advance to your usual diet, low salt diet
== END 2018-01-14 13:59 | disposition home or self-care (01) | DRG 945 ==
LOC: INPGRE 05:05